=== PATIENT | male | born 1965 | race Caucasian/White ===

== ENCOUNTER → 2023-05-17 | Outpatient (CLI) | payer OTHER, SELFPAY ==
--- NOTE | 2023-05-17 | LES_PTH ---
PATIENT: HARSHIL DOTY LOC: [facility] U#:[id number] AGE/SX: 58/M ROOM: RE05/17/[address]: Dr. Frankie Montano MD : 1965 BED: DIS: 05/17/2023 SPEC #: [id number] RECD: 05/17/23 17:37 STATUS: TAMIKO SHAZIA #: [id number] ROQUE: 05/17/23 00:[address]: Frankie Montano DEPT: SURGICAL PATHOLOGY RECD BY: Ashlee Jarrell Tissues: Skin of eyelid, NOS Procedures: Surgery Specimen Level IV HEADER OPERATION: Excision of lid lesion, left upper lid PRE-OP DIAGNOSIS: Increased size with central ulceration TISSUE SUBMITTED: Left medial canthus, left upper lid MICROSCOPIC DIAGNOSIS Left medial canthus lesion, left upper lid, biopsy: Basal cell carcinoma, incompletely excised. See comment. AM:gabriela 05/19/2023 COMMENT Clinical correlation is suggested. MICROSCOPIC DESCRIPTION Slides are reviewed. GROSS DESCRIPTION Received in fixative is one container labeled with the patient's name and designated left medial canthus. The specimen consists of an ovoid fragment of gee tissue measuring 0.3 x 0.2 x 0.2 cm. The specimen is totally submitted in one cassette. / AM:gabriela 05/18/2023 TC:0 [facility]: [id number]
== END | disposition home or self-care (01) ==
PROVIDERS: Referring Provider Ophthalmology; Visit Provider Ophthalmology
DX: C44.1191 Basal cell carcinoma of skin of left upper eyelid, including canthus (principal)
CPT/HCPCS: 88305